=== PATIENT | female | born 1995 | race Two or more races ===

== ENCOUNTER 2021-05-10 08:08 | Emergency (ER) | payer SELFPAY ==
[~2021-05-10] VITALS: Ht 157.5 cm; Wt 53.2 kg
[2021-05-10] MEDS ORDERED: PROCHLORPERAZINE 10 MG/2 ML VIAL. IV ONE (09:15)
[2021-05-10] MEDS ORDERED: diphenhydrAMINE 50 MG/ML VIAL IVP ONE (09:15)
[2021-05-10] MEDS ORDERED: KETOROLAC 15 MG/ML VIAL. IVP ONE (09:15)
[2021-05-10] MEDS ORDERED: IV NORMAL SALINE 1000ML BAG 1,000 ML IV ONE (09:15)
[2021-05-10] MEDS ORDERED: IOHEXOL 300 MG/ML 100ML VIAL. IV ONE (09:30)
[2021-05-10 09:38] LABS: BASO # 0.1 x10^3/uL (0.0-0.2); BASO % 1 % (0-3); EOS # 0.1 x10^3/uL (0.0-0.7); EOS % 1 % (0-3); HEMATOCRIT 36.9 % (36.0-47.0); HEMOGLOBIN 12.5 g/dL (12.0-15.5); LYMPH # 1.9 x10^3/uL (1.0-4.8); LYMPH % 16 % (24-48); MEAN CORPUSCULAR HEMOGLOBIN 29 pg (25-35); MEAN CORPUSCULAR HGB CONC 34 g/dL (31-37); MEAN CORPUSCULAR VOLUME 84 fL (79-100); MONO # 0.9 x10^3/uL (0.0-1.1); MONO % 7 % (0-9); NEUT # 8.9 x10^3/uL (1.8-7.7); NEUT % 75 % (31-73); PLATELET COUNT 311 x10^3/uL (140-400); RED BLOOD COUNT 4.38 x10^6/uL (3.50-5.40); RED CELL DISTRIBUTION WIDTH 13.9 % (11.5-14.5); WHITE BLOOD COUNT 11.9 x10^3/uL (4.0-11.0)
[2021-05-10 09:39] LABS: BILIRUBIN,URINE NEGATIVE (NEG); CLARITY,URINE CLEAR; COLOR,URINE YELLOW; NITRITE,URINE POSITIVE (NEG); PROTEIN,URINE NEGATIVE (NEG-TRACE); UROBILINOGEN,URINE 0.2 mg/dL (0.2 mg/dL)
[2021-05-10 09:43] LABS: CALCIUM 8.8 mg/dL (8.5-10.1); CREATININE 0.8 mg/dL (0.6-1.0); GFR 88.9; POTASSIUM 3.7 mmol/L (3.5-5.1)
[2021-05-10] MEDS ORDERED: CONTRAST GIVEN. MC PRN (09:45)
[2021-05-10 09:49] LABS: ALBUMIN 3.7 g/dL (3.4-5.0); ALBUMIN/GLOBULIN RATIO 0.9 (1.0-1.7); C-REACTIVE PROTEIN 59.5 mg/L (0-3.3); PHOSPHORUS 2.4 mg/dL (2.6-4.7); TOTAL BILIRUBIN 0.9 mg/dL (0.2-1.0); TOTAL PROTEIN 7.6 g/dL (6.4-8.2)
[2021-05-10 09:53] LABS: BACTERIA,URINE MANY /HPF (0-FEW)
--- NOTE | 2021-05-10 09:59 | ED.ADGEN ---
Past Medical History Past Surgical History: No Surgical History Smoking Status: Never Smoker Alcohol Use: Occasionally General Adult EDM: Chief Complaint: HEADACHE HPI: HPI: Patient is a 25 year old female coming in for headache, vertigo, and vision changes for the past 2 to 3 weeks. Patient states symptoms are worse today. Is taking Tylenol and states that symptoms go away after about 30 minutes and are worse with movement, relieved with rest. Denies any hearing changes. Received her first dose of [place] vaccine for COVID-19 patient states she has a history of headaches and migraines but this is worse. States the pain is on both temples. Also complaining of right sided paresthesias. Review of Systems: Review of Systems: All other systems within normal limits except for as noted in the HPI Current Medications: Current Medications Medications (Trade) Dose Ordered Sig/Percy Start Time Stop Time Status Last Admin Dose Admin Diphenhydramine HCl (Benadryl) 50 mg 1X ONCE 05/10/21 09:15 05/10/21 09:16 DC 05/10/21 09:30 50 MG Info (CONTRAST GIVEN -- Rx MONITORING) 1 each PRN DAILY PRN 05/10/21 09:45 05/12/21 09:44 Iohexol (Omnipaque 300 Mg/ml) 75 ml 1X ONCE 05/10/21 09:30 05/10/21 09:31 DC 05/10/21 09:53 75 ML Ketorolac Tromethamine (Toradol 15mg Vial) 15 mg 1X ONCE 05/10/21 09:15 05/10/21 09:16 DC 05/10/21 09:29 15 MG Prochlorperazine Edisylate (Compazine) 10 mg 1X ONCE 05/10/21 09:15 05/10/21 09:16 DC 05/10/21 09:28 10 MG Sodium Chloride 1,000 ml @ 1,000 mls/hr 1X ONCE 05/10/21 09:15 05/10/21 10:14 DC 05/10/21 09:32 1,000 MLS/HR Allergies: Allergies: Allergies Coded Allergies Type Severity Reaction Last Updated Verified No Known Drug Allergies 05/10/21 No Physical Exam: PE: Constitutional: Well developed, well nourished, no acute distress, non-toxic appearance. [] HENT: Normocephalic, atraumatic, bilateral external ears normal, nose normal. Bilateral TMs unremarkable [] Eyes: PERRLA, conjunctiva normal, no discharge. Extraocular is intact, no nystagmus [] Neck: No rigidity, supple, no stridor. [] Cardiovascular: Regular rate and rhythm, brisk cap refill [] Lungs & Thorax: Non labored symmetric respirations, no tachypnea or respiratory distress [] Abdomen: Soft, nondistended. Skin: Warm, dry, no erythema, no rash. [] Back: Unremarkable Extremities: No deformities, range of motion grossly intact, no lower extremity edema [] Neurologic: Alert and oriented X 3, no focal deficits noted. Subjective decreased sensation on right face and upper extremity [] Psychologic: Affect normal, judgement normal, mood normal. [] Current Patient Data: Labs: Laboratory Tests Test 05/10/21 08:25 05/10/21 08:32 05/10/21 08:34 05/10/21 09:10 Urine Collection Type Unknown Urine Color Yellow Urine Clarity Clear Urine pH 6.0 (<5.0-8.0) Urine Specific [place] 1.015 (1.000-1.030) Urine Protein Negative mg/dL (NEG-TRACE) Urine Glucose (UA) Negative mg/dL (NEG) Urine Ketones (Stick) Negative mg/dL (NEG) Urine Blood Large (NEG) Urine Nitrite Positive (NEG) Urine Bilirubin Negative (NEG) Urine Urobilinogen Dipstick 0.2 mg/dL (0.2 mg/dL) Urine Leukocyte Esterase Trace (NEG) Urine RBC 6-10 /HPF (0-2) Urine WBC 1-4 /HPF (0-4) Urine Bacteria Many /HPF (0-FEW) POC Urine HCG, Qualitative Hcg negative (Negative) Glucose (Fingerstick) 79 mg/dL (70-99) White Blood Count 11.9 x10^3/uL (4.0-11.0) H Red Blood Count 4.38 x10^6/uL (3.50-5.40) Hemoglobin 12.5 g/dL (12.0-15.5) Hematocrit 36.9 % (36.0-47.0) Mean Corpuscular Volume 84 fL (79-100) Mean Corpuscular Hemoglobin 29 pg (25-35) Mean Corpuscular Hemoglobin Concent 34 g/dL (31-37) Red Cell Distribution Width 13.9 % (11.5-14.5) Platelet Count 311 x10^3/uL (140-400) Neutrophils (%) (Auto) 75 % (31-73) H Lymphocytes (%) (Auto) 16 % (24-48) L Monocytes (%) (Auto) 7 % (0-9) Eosinophils (%) (Auto) 1 % (0-3) Basophils (%) (Auto) 1 % (0-3) Neutrophils # (Auto) 8.9 x10^3/uL (1.8-7.7) H Lymphocytes # (Auto) 1.9 x10^3/uL (1.0-4.8) Monocytes # (Auto) 0.9 x10^3/uL (0.0-1.1) Eosinophils # (Auto) 0.1 x10^3/uL (0.0-0.7) Basophils # (Auto) 0.1 x10^3/uL (0.0-0.2) Erythrocyte Sedimentation Rate 18 (0-25) Sodium Level 140 mmol/L (136-145) Potassium Level 3.7 mmol/L (3.5-5.1) Chloride Level 105 mmol/L (98-107) Carbon Dioxide Level 26 mmol/L (21-32) Anion Gap 9 (6-14) Blood Urea Nitrogen 7 mg/dL (7-20) Creatinine 0.8 mg/dL (0.6-1.0) Estimated GFR (Cockcroft-Gault) 88.9 BUN/Creatinine Ratio 9 (6-20) Glucose Level 84 mg/dL (70-99) Calcium Level 8.8 mg/dL (8.5-10.1) Phosphorus Level 2.4 mg/dL (2.6-4.7) L Total Bilirubin 0.9 mg/dL (0.2-1.0) Aspartate Amino Transferase (AST) 12 U/L (15-37) L Alanine Aminotransferase (ALT) 18 U/L (14-59) Alkaline Phosphatase 67 U/L (46-116) C-Reactive Protein, Quantitative 59.5 mg/L (0-3.3) H Total Protein 7.6 g/dL (6.4-8.2) Albumin 3.7 g/dL (3.4-5.0) Albumin/Globulin Ratio 0.9 (1.0-1.7) L Lipase 80 U/L (73-393) Laboratory Tests 05/10/21 09:10 Laboratory Tests 05/10/21 09:10 Vital Signs: Vital Signs Date Time Temp Pulse Resp B/P (MAP) Pulse Ox O2 Delivery O2 Flow Rate FiO2 05/10/21 10:48 62 106/62 (77) 99 Room Air 05/10/21 08:54 19 05/10/21 08:25 98.4 98.4 EKG: EKG: Sinus tachycardia, heart rate 70/min, normal axis, no ST elevation or depression, no ectopy. [] Heart Score: C/O Chest Pain: No Risk Factors: Risk Factors: DM, Current or recent (<one month) smoker, HTN, HLP, family history of CAD, obesity. Risk Scores: Score 0 - 3: 2.5% MACE over next 6 weeks - Discharge Home Score 4 - 6: 20.3% MACE over next 6 weeks - Admit for Clinical Observation Score 7 - 10: 72.7% MACE over next 6 weeks - Early Invasive Strategies Radiology/Procedures: Radiology/Procedures: [facility] [address] [place] [address] IMAGING REPORT Signed PATIENT: WOO LOZADAOUNT: [id number] : 1995 LOCATION: ER AGE: 25 SEX: F EXAM STATUS: REG ER ORD. PHYSICIAN: MAULIK JOHNS MD REASON: headache, vertigo, CTV PROCEDURE: CT HEAD W/CONTRAST CT HEAD WITH IV CONTRAST Date: 05/10/2021 9:25 AM Clinical Indication: headache, vertigo, CTV Comparison: None. Technique: CT of the head with intravenous contrast. 75 cc Omnipaque 300 contrast was administered intravenously during the exam. These were viewed on brain and bone windows. One or more of the following dose reduction techniques were utilized: Automated exposure control (AEC), Adjustment of mA and/or kV according to patient size, Use of iterative reconstruction technique such as ASiR, CT scan done according to ALARA and image gently/image wisely Findings: Right transverse and sigmoid sinuses are hypoplastic, anatomic variant. All visualized portions of the superior sagittal sinus, internal cerebral veins, vein of Nsetor, straight sinus, transverse sinuses, and sigmoid sinuses are otherwise patent. Impression: No evidence of intracerebral venous sinus thrombosis. Electronically signed by: Carli Gr MD (05/10/2021 10:02 AM) [id number] DICTATED and SIGNED BY: CARLI GR MD DATE: 05/10/21 [id number] [][facility] [address] [place] [address] IMAGING REPORT Signed PATIENT: WOO LOZADAOUNT: [id number] : 1995 LOCATION: ER AGE: 25 SEX: F EXAM STATUS: REG ER ORD. PHYSICIAN: MAULIK JOHNS MD REASON: headache, vertigo PROCEDURE: CT HEAD AND CERVICAL SPINE WO CT HEAD AND C-SPINE WO Date: 05/10/2021 9:25 AM Clinical Indication: headache, vertigo, pain Comparison: None. Technique: 5 mm axial tomographic images were obtained of the head without cont rast. These were viewed on brain and bone windows. CT imaging of the cervical spine was performed without contrast. Coronal and sagittal reformatted images were performed. One or more of the following dose reduction techniques were utilized: Automated exposure control (AEC), Adjustment of mA and/or kV according to patient size, Use of iterative reconstruction technique such as ASiR, CT scan done according to ALARA and image gently/image wisely HEAD FINDINGS: The brain parenchyma is normal in attenuation. No intra- or extra-axial mass or fluid collection. No acute hemorrhage. The ventricles are normal in size, shape, and morphology. The emanuel-white matter junction is normal. The basilar cisterns are patent. The visualized paranasal sinuses are normal. The visualized portions of the orbits and globes are normal. The mastoid air cells are clear. No aggressive osseous lesion or fracture. CERVICAL SPINE FINDINGS: The cervical spine is normally aligned. No acute fracture. No aggressive lytic or blastic osseous lesion. The intervertebral disc heights are maintained. No high-grade spinal canal stenosis or neural foraminal narrowing. The thyroid gland is normal. No cervical lymphadenopathy. The visualized aerodigestive tract is unremarkable. The visualized lung apices are clear. IMPRESSION: 1. No acute intracranial process. 2. No acute osseous abnormality of the cervical spine. Electronically signed by: Carli Gr MD (05/10/2021 10:00 AM) [id number] DICTATED and SIGNED BY: CARLI GR MD DATE: 05/10/21 [id number] Course & Med Decision Making: Course & Med Decision Making Pertinent Labs and Imaging studies reviewed. (See chart for details) Unremarkable work-up, patient's headache resolved. No meningeal concerns on exam. CRP elevated, consistent with migraine. Sed rate negative. [] Dragon Disclaimer: Dragon Disclaimer: This electronic medical record was generated, in whole or in part, using a voice recognition dictation system. Departure Departure Disposition: HOME / SELF CARE / HOMELESS Condition: IMPROVED Referrals: NO PCP (PCP) Patient Instructions: General Headache Without Cause, Vertigo Scripts Meclizine Hcl (MECLIZINE HCL) 25 Mg Tablet 1 TAB PO TID for dizziness, #20 TAB Prov: MAULIK JOHNS MD 05/10/21 MAULIK JOHNS MD May 10, 2021 09:59
--- NOTE | 2021-05-10 10:02 | RAD ---
CT HEAD AND C-SPINE WO Date: 05/10/2021 9:25 AM Clinical Indication: headache, vertigo, pain Comparison: None. Technique: 5 mm axial tomographic images were obtained of the head without contrast. These were view ed on brain and bone windows. CT imaging of the cervical spine was performed without contrast. Coron al and sagittal reformatted images were performed. One or more of the following dose reduction techni ques were utilized: Automated exposure control (AEC), Adjustment of mA and/or kV according to patient size, Use of iterative reconstruction technique such as ASiR, CT scan done according to ALARA and im age gently/image wisely HEAD FINDINGS: The brain parenchyma is normal in attenuation. No intra- or extra-axial mass or fluid collection. No acute hemorrhage. The ventricles are normal in size, shape, and morphology. The emanuel-white matter spike ction is normal. The basilar cisterns are patent. The visualized paranasal sinuses are normal. The visualized portions of the orbits and globes are no rmal. The mastoid air cells are clear. No aggressive osseous lesion or fracture. CERVICAL SPINE FINDINGS: The cervical spine is normally aligned. No acute fracture. No aggressive lytic or blastic osseous les ion. The intervertebral disc heights are maintained. No high-grade spinal canal stenosis or neural foramin al narrowing. The thyroid gland is normal. No cervical lymphadenopathy. The visualized aerodigestive tract is unrem arkable. The visualized lung apices are clear. IMPRESSION: 1. No acute intracranial process. 2. No acute osseous abnormality of the cervical spine. Electronically signed by: Dylan Gr MD (05/10/2021 10:00 AM) [id number]
--- NOTE | 2021-05-10 10:05 | RAD ---
CT HEAD WITH IV CONTRAST Date: 05/10/2021 9:25 AM Clinical Indication: headache, vertigo, CTV Comparison: None. Technique: CT of the head with intravenous contrast. 75 cc Omnipaque 300 contrast was administered in travenously during the exam. These were viewed on brain and bone windows. One or more of the followi ng dose reduction techniques were utilized: Automated exposure control (AEC), Adjustment of mA and/or kV according to patient size, Use of iterative reconstruction technique such as ASiR, CT scan done a ccording to ALARA and image gently/image wisely Findings: Right transverse and sigmoid sinuses are hypoplastic, anatomic variant. All visualized portions of th e superior sagittal sinus, internal cerebral veins, vein of Nestor, straight sinus, transverse sinuses , and sigmoid sinuses are otherwise patent. Impression: No evidence of intracerebral venous sinus thrombosis. Electronically signed by: Dylan Gr MD (05/10/2021 10:02 AM) [id number]
[2021-05-10] MEDS ORDERED: MECL-75 PO (11:23)
[2021-05-10 11:31] VITALS: BP 113/66
--- NOTE | 2021-05-10 15:55 | EKG ---
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
== END 2021-05-10 11:45 | disposition home or self-care (01) ==
LOC: ER 08:08
DX: R51.9 Headache, unspecified (principal); R42 Dizziness and giddiness
CPT/HCPCS: 36415; 70450; 70460; 72125; 80053; 81001; 81025; 82962; 83690; 84100; 85025; 85651; 86140; 87086; 93005; 96361; 96374; 96375; 99285; J0780; J1200; J1885; J7030; Q9967